=== PATIENT | male | born 1995 | race African-American/Black ===

== ENCOUNTER 2021-01-03 11:26 | Emergency (ER) | payer SELFPAY ==
[~2021-01-03] VITALS: Ht 175.3 cm; Wt 77.0 kg
[2021-01-03] MEDS ORDERED: PROPOFOL 200MG/20ML VIAL IV ONE (12:00)
[2021-01-03] MEDS ORDERED: KETOROLAC 30MG/ML VIAL IV ONE (12:00)
[2021-01-03] MEDS ORDERED: KETAMINE HCL 50 MG/ML 10ML IV ONE (12:00)
[2021-01-03] MEDS ORDERED: ONDANSETRON HCL 4MG/2ML INJ IV ONE (12:00)
[2021-01-03] MEDS ORDERED: IBUP-2029 PO (13:01)
[2021-01-03 13:14] VITALS: BP 121/81
== END 2021-01-03 13:21 | disposition home or self-care (01) ==
LOC: ER 11:26
DX: S43.085A Other dislocation of left shoulder joint, initial encounter (principal); F12.10 Cannabis abuse, uncomplicated; F17.210 Nicotine dependence, cigarettes, uncomplicated; Z98.890 Other specified postprocedural states; Y04.0XXA Assault by unarmed brawl or fight, initial encounter; Y93.89 Activity, other specified; Y92.018 Other place in single-family (private) house as the place of occurrence of the external cause
CPT/HCPCS: 23650; 73030; 96374; 96375; 99152; 99285; J1885; J2405; J2704; J3490; L3670

== ENCOUNTER 2021-04-27 11:29 | Emergency (ER) | payer MEDICAID ==
[~2021-04-27] VITALS: Ht 175.3 cm; Wt 71.0 kg
[~2021-04-27 11:29] MED LIST: IBUP-2029 PO
[2021-04-27] MEDS ORDERED: SODIUM CHLORIDE 0.9% 1,000 ML IV ONE (12:00)
[2021-04-27] MEDS ORDERED: ONDANSETRON HCL 4MG/2ML INJ IV STA (12:00)
[2021-04-27] MEDS ORDERED: MORPHINE SULFATE 4 MG/ML CPJ (NOT FOR IM USE) IV STA (12:00)
[2021-04-27 12:29] LABS: BASOPHILS % 0.3 % (0.0-2.0); CHLORIDE 107 mEq/L (98-107); EOSINOPHILS % 0.5 % (0.0-5.0); HEMATOCRIT. 45.3 % (42.0-52.0); HEMOGLOBIN. 15.7 g/dL (14.0-18.0); MEAN CORPUSCULAR VOLUME 89.4 fL (80.0-94.0); MEAN PLATELET VOLUME 8.7 fl (7.4-10.4); MONOCYTES % 6.9 % (2.0-8.0); NEUTROPHILS % 79.3 % (40.0-76.0); PLATELET 184 x1000/uL (130-400); RED BLOOD CELL COUNT 5.06 mill/uL (4.7-6.1)
[2021-04-27 12:36] LABS: PROTHROMBIN TIME 11.2 sec (9.6-11.0)
[2021-04-27 12:37] LABS: ETHANOL BLOOD < 10 mg/dL
[2021-04-27 13:16] LABS: CLARITY URINE CLEAR (CLEAR); COLOR URINE YELLOW (YELLOW); KETONES URINE 4+ (NEGATIVE); LEUKOCYTE ESTERASE URINE TRACE (NEGATIVE); NITRITE URINE NEGATIVE (NEGATIVE); OCCULT BLOOD URINE NEGATIVE (NEGATIVE); PH URINE 6.5 (4.5-8.0); PROTEIN URINE NEGATIVE (NEGATIVE); SPECIFIC GRAVITY URINE 1.023 (1.005-1.030)
[2021-04-27 13:34] LABS: *AMPHETAMINES SCREEN URINE NEGATIVE (NEGATIVE); *BARBITURATES SCREEN URINE NEGATIVE (NEGATIVE); *BENZODIAZEPINES SCREEN URINE NEGATIVE (NEGATIVE); *COCAINE SCREEN URINE NEGATIVE (NEGATIVE); METHADONE URINE SCREEN NEGATIVE (NEGATIVE); OPIATES URINE SCREEN PRESUMTIVE POSITIVE (NEGATIVE)
[2021-04-27 13:35] LABS: CANNABINOID URINE SCREEN PRESUMTIVE POSITIVE (NEGATIVE); PHENCYCLIDINE URINE SCREEN NEGATIVE (NEGATIVE)
[2021-04-27] MEDS ORDERED: ONDA4TAB5 MT (15:58)
[2021-04-27] MEDS ORDERED: TRAM50TA3 MT (15:58)
[2021-04-27] MEDS ORDERED: OMEP20CA14 MT (15:58)
[2021-04-27 16:11] VITALS: BP 138/80
== END 2021-04-27 16:14 | disposition home or self-care (01) ==
LOC: ER 11:29
DX: R10.13 Epigastric pain (principal); R11.10 Vomiting, unspecified; M24.412 Recurrent dislocation, left shoulder; F12.10 Cannabis abuse, uncomplicated; F17.210 Nicotine dependence, cigarettes, uncomplicated
CPT/HCPCS: 36415; 74176; 80053; 80305; 80320; 81003; 83690; 85025; 85610; 96361; 96374; 96375; 99284; J2270; J2405; J7030; G0480

== ENCOUNTER 2022-10-12 20:43 | Emergency (ER) | payer MEDICAID ==
[~2022-10-12] VITALS: Ht 175.3 cm; Wt 64.0 kg
[~2022-10-12 20:43] MED LIST changes: +OMEP20CA14 MT; +ONDA4TAB5 MT; +TRAM50TA3 MT
[2022-10-12 21:22] VITALS: BP 114/77
[2022-10-12 23:39] LABS: BASOPHILS % 0.2 % (0.0-2.0); EOSINOPHILS % 0.8 % (0.0-5.0); HEMATOCRIT. 45.4 % (42.0-52.0); HEMOGLOBIN. 15.3 g/dL (14.0-18.0); LYMPHOCYTES % 12.9 % (20.0-50.0); MEAN CORPUSCULAR HEMOGLOBIN 30.9 pg (28.0-32.0); MEAN CORPUSCULAR VOLUME 91.4 fL (80.0-94.0); MEAN PLATELET VOLUME 8.4 fl (7.4-10.4); MONOCYTES % 7.6 % (2.0-8.0); NEUTROPHILS % 78.5 % (40.0-76.0); PLATELET 193 x1000/uL (130-400); RED BLOOD CELL COUNT 4.96 mill/uL (4.7-6.1); RED CELL DISTRIBUTION WIDTH 13.7 % (11.6-14.6)
[2022-10-12 23:59] LABS: CHLORIDE 104 mEq/L (98-107)
[2022-10-13 00:07] LABS: ETHANOL BLOOD < 10 mg/dL
== END 2022-10-13 08:06 | disposition left against medical advice (07) ==
LOC: ER 20:43
DX: Z53.21 Procedure and treatment not carried out due to patient leaving prior to being seen by health care provider (principal)
CPT/HCPCS: 36415; 80053; 80320; 85025; 99283; G0480